=== PATIENT | male | born 1990 | race Two or more races ===

== ENCOUNTER 2019-12-12 18:42 | Emergency (ER) | payer SELFPAY ==
--- NOTE | 2019-12-12 19:48 | ER Document Report ---
ED Medical Screen (RME) - General Chief Complaint: Numbness of Face Stated Complaint: LEFT FACIAL NUMBNESS Time Seen by Provider: 12/12/19 19:39 Mode of Arrival: Ambulatory Information source: Patient Notes: 29-year-old male presents to ED for complaint of change in taste and feeling to his tongue starting 3 days ago. He states then today he has noticed that his left eye is dry and does not close all the way left side of his mouth droops a little bit and does not move when he is smiling or talking. He states his left side of his tongue is more numb than it has been. He states he is also had a discomfort to the left side of his head. He does not have any weakness, he does not have any change in his gait, he does not have any change in his orientation or mentation. He does have decreased wrinkles to the left side of his forehead. I have consulted Dr. arambula to examine the patient. He stated he recommended a CT of the head and then he will excelsior picker the patient and complete his assessment. I have greeted and performed a rapid initial assessment of this patient. A comprehensive ED assessment and evaluation of the patient, analysis of test results and completion of medical decision making process will be conducted by an additional ED providers. TRAVEL OUTSIDE OF THE [place] IN LAST 30 DAYS: No - Related Data Allergies/Adverse Reactions: No Known Allergies Allergy (Verified 12/12/19 19:40) Home Medications: DENIES Past Medical History - Social History Chew tobacco use (# tins/day): No Frequency of alcohol use: Occasional Drug Abuse: Marijuana Past Surgical History: Reports: Hx Orthopedic Surgery - Immunizations Hx Diphtheria, Pertussis, Tetanus Vaccination: Yes Physical Exam - Vital signs Vitals: Temp Pulse Resp BP Pulse Ox 98.6 F 54 L 18 159/93 H 99 12/12/19 18:52 12/12/19 18:52 12/12/19 18:52 12/12/19 18:52 12/12/19 18:52 Course - Vital Signs Vital signs: Temp Pulse Resp BP Pulse Ox 98.6 F 54 L 18 159/93 H 99 12/12/19 19:40 12/12/19 18:52 12/12/19 18:52 12/12/19 18:52 12/12/19 18:52
--- NOTE | 2019-12-12 20:00 | ER Document Report ---
ED General - General Chief Complaint: Numbness of Face Stated Complaint: LEFT FACIAL NUMBNESS Time Seen by Provider: 12/12/19 19:39 Mode of Arrival: Ambulatory Information source: Patient Notes: RN notes Pt comes to ed from home via pov brought by self for c/o 3 day onset tongue numbness and altered taste. noted today dry eyes, blurred vision and pain thsat comes from over left ear that radiates down left neck. speech clear and appropriate. no trouble swallowing or with extremities. [place] notes 29-year-old male presents to ED for complaint of change in taste and feeling to his tongue starting 3 days ago. He states then today he has noticed that his left eye is dry and does not close all the way left side of his mouth droops a little bit and does not move when he is smiling or talking. He states his left side of his tongue is more numb than it has been. He states he is also had a discomfort to the left side of his head. He does not have any weakness, he does not have any change in his gait, he does not have any change in his orientation or mentation. He does have decreased wrinkles to the left side of his forehead. I have consulted Dr. arambula to examine the patient. He stated he recommended a CT of the head and then he will product picker the patient and complete his assessment. My notes; 29-year-old descent German male arrives with chief complaint of 3 days of left temporal left angle of jaw TMJ pain left earache and tongue numbness and altered taste. Also noticed he had blurred vision with pain from left ear down left lateral neck. Tongue is midline speech is clear no problems swallowing. I was called to the triage room by Martha to assist this patient. 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 TRAVEL OUTSIDE OF THE [place] IN LAST 30 DAYS: No - Related Data Allergies/Adverse Reactions: No Known Allergies Allergy (Verified 12/12/19 19:40) Home Medications: DENIES Past Medical History - General Information source: Patient - Social History Smoking Status: Current Every Day Smoker Cigarette use (# per day): Yes Chew tobacco use (# tins/day): No Smoking Education Provided: Yes Frequency of alcohol use: Occasional Drug Abuse: Marijuana Lives with: Family Family History: Reviewed & Not Pertinent Patient has suicidal ideation: No Patient has homicidal ideation: No Past Surgical History: Reports: Hx Orthopedic Surgery - Immunizations Hx Diphtheria, Pertussis, Tetanus Vaccination: Yes Review of Systems - Review of Systems Constitutional: No symptoms reported EENT: See HPI, Blurred vision, Ear pain Cardiovascular: No symptoms reported Respiratory: No symptoms reported Gastrointestinal: No symptoms reported Genitourinary: No symptoms reported Male Genitourinary: No symptoms reported Musculoskeletal: No symptoms reported Skin: No symptoms reported Hematologic/Lymphatic: No symptoms reported Neurological/Psychological: No symptoms reported Physical Exam - Vital signs Vitals: Temp Pulse Resp BP Pulse Ox 98.6 F 54 L 18 159/93 H 99 12/12/19 18:52 12/12/19 18:52 12/12/19 18:52 12/12/19 18:52 12/12/19 18:52 Interpretation: Hypertensive, Bradycardic - General General appearance: Appears well - HEENT Head: Normocephalic Eyes: Normal Conjunctiva: Normal Cornea: Normal Extraocular movements intact: Yes Eyelashes: Normal Pupils: PERRL Ears: Normal Tympanic membrane: Serous effusion Nasal: Normal Mouth/Lips: Normal Mucous membranes: Normal Pharynx: Erythema Neck: Normal - Respiratory Respiratory status: No respiratory distress Chest status: Nontender Breath sounds: Normal Chest palpation: Normal - Cardiovascular Rhythm: Regular Heart sounds: Normal auscultation Murmur: No - Abdominal Inspection: Normal Distension: No distension Bowel sounds: Normal Tenderness: Nontender Organomegaly: No organomegaly - Back Back: Normal, Nontender - Extremities General upper extremity: Normal inspection General lower extremity: Normal inspection - Neurological Neuro grossly intact: Yes Cognition: Normal Orientation: AAOx4 Hostetter Coma Scale Eye Opening: Spontaneous Hostetter Coma Scale Verbal: Oriented Edouard Coma Scale Motor: Obeys Commands Hostetter Coma Scale Total: 15 Speech: Normal Motor strength normal: LUE, RUE, LLE, RLE Sensory: Normal - Psychological Associated symptoms: Normal affect - Skin Skin Temperature: Warm Skin Moisture: Dry Course - Vital Signs Vital signs: Temp Pulse Resp BP Pulse Ox 98.6 F 54 L 18 159/93 H 99 12/12/19 19:40 12/12/19 18:52 12/12/19 18:52 12/12/19 18:52 12/12/19 18:52 - Diagnostic Test Radiology reviewed: Reports reviewed Critical Care Note - Critical Care Note Total time excluding time spent on procedures (mins): 90 Comments: I advised patient of his CT findings Discharge - Discharge Clinical Impression: Garrido palsy Condition: Good Disposition: HOME, SELF-CARE Instructions: Garrido's Palsy ([facility]) Additional Instructions: Follow-up with personal doctor this week if symptoms persist take medicines as directed encourage fluids and off work as directed Prescriptions: Dexamethasone [Decadron 4 Mg Tablet] 4 mg PO DAILY #4 tablet Cephalexin Monohydrate [Keflex 500 mg Capsule] 500 mg PO BID 5 Days #20 capsule Acyclovir [Zovirax 200 mg Capsule] 200 mg PO TID 7 Days #21 capsule Forms: Return to Work
--- NOTE | 2019-12-12 20:35 | RADIOLOGY REPORT (SQ) ---
EXAM DESCRIPTION: CT HEAD WITHOUT IV CONTRAST COMPLETED DATE/TME: 12/12/2019 19:45 CLINICAL HISTORY: 29 years, Male, Facial droop left side COMPARISON: Prior study from 06/15/2016 TECHNIQUE: Noncontrast CT head was performed. Coronal and sagittal reformations were created. Images stored on PACS. All CT scanners at this facility use dose modulation, iterative reconstruction, and/or weight based dosing when appropriate to reduce radiation dose to as low as reasonably achievable (ALARA). [facility]: Dose Right [facility]: CareDose [facility]: Dose Right [facility]: Teradose 4D [facility]: [employer] LIMITATIONS: None. FINDINGS: Brain parenchyma is normal in attenuation. No acute intracranial hemorrhage, mass effect, or extra-axial fluid is seen. Ventricles and sulcal spaces are normal in size and configuration. Globes and orbits show no acute abnormality. Paranasal sinuses and mastoid air cells are clear. No depressed skull fractures. IMPRESSION: No intracranial abnormality. TECHNICAL DOCUMENTATION: Quality ID # [id number]: Final reports with documentation of one or more dose reduction techniques (e.g., Automated exposure control, adjustment of the mA and/or kV according to patient size, use of iterative reconstruction technique) copyright 2010 [employer]- All Rights Reserved
[2019-12-12] MEDS ORDERED: DEXAMETHASONE SOD PHOS INJ 10 MG/1 ML VIAL IM ONE (20:48)
[2019-12-12] MEDS ORDERED: HYDROCODONE/ACETAMINOPHEN 5-325 MG (6 TAB/ER DISP) PO PRN (20:53)
[2019-12-12 21:40] VITALS: BP 147/86
== END 2019-12-12 21:45 | disposition home or self-care (01) ==
LOC: ER 18:42
DX: G51.0 Bell's palsy (principal); R20.0 Anesthesia of skin; H92.02 Otalgia, left ear; M54.2 Cervicalgia; F17.210 Nicotine dependence, cigarettes, uncomplicated
CPT/HCPCS: 99291; 99292; 96372; 70450; J1100